=== PATIENT | male | born 1940 | race Asian ===

== ENCOUNTER → 2016-06-27 | Outpatient (CLI) | payer OTHER, BC ==
[~2016-06-27] MED LIST: AMLO-114 PO; ATOR10TA88 PO; CHOL1CAP57 PO; CRG3125 PO; LATA0.5S OPB; LISI-461 PO
--- NOTE | 2016-06-27 09:15 | DIAGNOSTIC IMAGING REPORT ---
CHEST CT WITHOUT CONTRAST CT DOSE: 266.56 mGycm HISTORY: Dyspnea J41.0 [id number] TECHNIQUE: Multiaxial CT images of the chest were performed without contrast. COMPARISON: 01/16/2015 FINDINGS: No major change compared to the prior study. Minimal bronchiectatic change anterior aspect of lingula unaltered. Lungs otherwise appear clear. No significant mediastinal or hilar adenopathy. Axillary regions are unremarkable. Moderate atherosclerotic change thoracic aorta unchanged. Several hepatic hypodensities as well as several small gallstones unchanged. Prior operative resection of the right kidney. IMPRESSION: Minimal chronic bronchiectatic changes anterior lingula. Otherwise negative chest Electronically signed by: Isreal Banerjee M.D. 06/27/2016 9:14 AM Dictated Date/Time: 06/27/2016 9:08 AM
== END | disposition home or self-care (01) ==
LOC: C.CTS 08:39
PROVIDERS: ATTEND Internal Medicine Pulmonary Disease
DX: J41.0 Simple chronic bronchitis (principal)

== ENCOUNTER → 2016-07-08 | Outpatient (CLI) | payer OTHER, BC ==
[2016-07-08 11:31] LABS: BASO % 0.4 %; BASO ABS # 0.03 K/uL (0-0.2); COMPLETE YES; EOS % 5.4 %; HEMATOCRIT 43.7 % (42-52); IG% 0.4 %; LYMPH % 22.9 %; LYMPH ABS # 1.71 K/uL (1.2-3.4); MEAN CELL VOLUME 83.7 fL (80-100); MEAN CORPUSCULAR HEMOGLOBIN 28.4 pg (25-34); MEAN CORPUSCULAR HGB CONC 33.9 g/dl (32-36); MEAN PLATELET VOLUME 9.9 fL (7.4-10.4); MONO % 6.3 %; NEUT % 64.6 %; PLATELET COUNT 310 K/uL (130-400); RED BLOOD COUNT 5.22 M/uL (4.7-6.1); WHITE BLOOD COUNT 7.47 K/uL (4.8-10.8)
[2016-07-08 11:40] LABS: INR 0.9 (0.9-1.1); PARTIAL THROMBOPLASTIN RATIO 1.1; PROTHROMBIN TIME (PATIENT) 9.9 SECONDS (9.0-12.0)
== END | disposition home or self-care (01) ==
LOC: C.LAB 10:27
PROVIDERS: ATTEND Internal Medicine Pulmonary Disease
DX: R05 Cough (principal); J41.0 Simple chronic bronchitis

== ENCOUNTER 2016-07-31 06:51 | Day surgery (SDC) | payer OTHER, BC ==
--- NOTE | 2016-07-30 20:09 | HISTORY & PHYSICAL EXAMINATION ---
DATE OF ADMISSION: 07/31/2016 REASON FOR BRONCHOSCOPY: Chronic cough and bronchiectasis. HISTORY OF PRESENT ILLNESS: This is a 76-year-old male who was referred to our office by his channeler runner, Dr. Raymond in evaluation from bronchoscopy with several year history of chronic productive cough. He is a retired trauma counsellor. He is a lifelong nonsmoker with a history of social secondhand exposure. The patient is originally from the [facility]. He moved to the [facility] in the late 1970s/early 1980s. He is a retired trauma counsellor, but now travels to the [facility] every 3 months. In the fall of 2013, after returning from the [place] from one of these trips, he developed cough productive of thick green sputum with mild postnasal drip and nocturnal wheeze. Evaluation at that time included a QuantiFERON gold, sputum culture, and AFB smear; all of which were unremarkable/negative. He completed a 14-day course of ciprofloxacin with improvement such that his mucus remained productive but became clear in nature. Unfortunately, this mucus production remained intermittent since that time. 2014 sputum production became more persistent/consistent with associated symptoms of nocturnal wheeze. He would produce 10-70 mL of thick white sputum typically in the mornings. He stated that mucus may occasionally be tinged green in color. He denied any associated fevers, chills, or weakness. He was prescribed Symbicort; however, stated that he did use this inconsistently and only for very brief periods. CT chest February 2014: Interstitial thickening of the lung bases with 2 mm right upper lobe nodule. CT chest June 2014: Unchanged 3 mm left upper lobe and right upper lobe nodules. CT chest 06/27/2016: Minimal chronic bronchiectatic changes in the anterior lingula. No change in tiny pulmonary nodules. On June 2014, he was evaluated by Dr. Raymond his channeler runner for these symptoms as well as pulmonary nodules. Pulmonary function test and additional imaging were completed (as below). He was prescribed several inhalers including Symbicort, Combivent, Spiriva, and mometasone and INH as well as montelukast and prednisone. The patient did not demonstrate any consistent use with any of these inhalers and discontinued each in less than 2 weeks on his own volition. The patient was evaluated in the office on June 2016 for persistent symptoms of large amounts of mucus production. In the office, he stated that he continued to produce 10-75 mL of thick white/intermittently green-tinged sputum on most days. He denied any associated hemoptysis. He denied any associated dyspnea or wheeze. He continued to report intermittent symptoms of clear rhinorrhea which he felt increased following a trial of mometasone INH, which subsequently has been discontinued. He did not use Spiriva secondary to worries regarding his BPH. He denies any symptoms of acid reflux, aspiration, fevers, chills, or sinus pain or congestion. He does feel symptoms are worse with air conditioning. He notices this most while visiting the [facility] where he will ride in cars with air conditioning in the setting of air pollution outdoors. He has done some research and is concerned regarding lung cancer producing bronchorrhea. The patient is a lifelong nonsmoker. He reports secondhand exposure socially as a young adult. He was born in the [facility] and moved to the [facility] in the late 1970s/early 1980s. He visits the [facility] on average every 3 months for trips that last generally 2 weeks in duration. Other travel has included to [place] several years ago. He does deny any prior service in the . He denies any exposure to mining/brick/coal dust. He denies any exposure to asbestos/fumes or respiratory irritants. In his home, he uses a heat pump. No dust/mildew/mold. He denies any pets or exposure to livestock, reptiles, rabbits, aviators or bats. His did from tuberculosis. His father from pancreatic cancer at the age of 9090 years old. His mother was diagnosed with breast cancer. PULMONARY FUNCTION TESTING, SEPTEMBER 2014: FVC: 3.06/88%, FEV1: 2.42/79%, FEV1/FVC: 79, FEF 25-75%: 2.48/74%, RV: 2.04/103%, T.22/84%, DLCO: 80%. PAST MEDICAL HISTORY: 1. Allergic rhinitis. 2. Pulmonary nodules. 3. Hypertension. 4. BPH. 5. Right bundle branch block. 6. Dyslipidemia. 7. Esophageal reflux disease. 8. CKD III. 9. 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 10. Tick bite. 11. Nephrolithiasis. 12. Bronchorrhea. PAST SURGICAL HISTORY: History of nephrectomy. FAMILY HISTORY: 1. Malignant neoplasm of the prostate. 2. Breast cancer. 3. Pancreatic cancer. SOCIAL HISTORY: 1. Denies alcohol. 2. Denies drug use. 3. He is a lifelong nonsmoker. CURRENT MEDICATIONS: 1. Amlodipine besylate 10 mg oral tablet: Take 1 tablet once daily. 2. Atorvastatin calcium 10 mg oral tablet: Take 1 tablet daily. 3. Benadryl 25 mg tablet: Take 1 tablet as needed. 4. Lisinopril 10 mg oral tablet: Take 1 tablet everyday. 5. Vitamin D3 1000 units oral tablet: Take 1 tablet daily. 6. Xalatan 0.005% ophthalmic solution: Instill 1 drop in both eyes at bedtime. ALLERGIES: 1. POLLEN. 2. No known drug allergies. PHYSICAL EXAMINATION: VITAL SIGNS: Height 5 feet 1 inch, weight 136 pounds, temperature 97.8 Fahrenheit oral, heart rate 99 beats per minute, respiratory rate 17 respirations per minute, oxygen saturation 99% on room air, blood pressure 142/88 left upper extremity sitting. CONSTITUTIONAL: Well-developed, well-nourished male. No acute distress. HEAD: Positive facial symmetry. EYES: EOMI, PERRLA, no conjunctival injection. Arcus senilis. Corrective lenses. MOUTH: Mallampati grade 2. No erythema, exudate, or postnasal drip is visible. No oral lesions. NECK: Trachea is midline without adenopathy or masses. RESPIRATORY: Nonlabored respirations. No cough on exam. No wheezes, rales, or rhonchi. No clubbing or cyanosis. CARDIOVASCULAR: Regular rate and rhythm. No murmurs, rubs or gallops. +2 radial pulses bilaterally with less than 1 second capillary refill throughout. MUSCULOSKELETAL AND EXTREMITIES: Moving and developed symmetrically with trace left lower extremity edema. No calf tenderness. Negative Homans sign. NEUROLOGIC: Alert and oriented. Data recall intact. Appropriate affect. REVIEW OF SYSTEMS: CONSTITUTIONAL: Denies fevers, weight gain, chills or fatigue. EYES: Negative. ENT: Positive for nasal discharge. Negative for pharyngitis or vocal hoarseness. CARDIOVASCULAR: Positive for lower extremity edema. Denies chest pain or palpitations. RESPIRATORY: Positive for cough, but as noted in the HPI. Denies shortness of breath, wheeze, or dyspnea on exertion. GASTROINTESTINAL: Negative. HEMATOLOGIC AND LYMPHATIC: Negative. ASSESSMENT AND PLAN: A 76-year-old male referred to us by his channeler runner for persistent bronchorrhea in consideration for bronchoscopy. 1. Chronic productive cough present since the fall of 2013 with lingular bronchiectasis on CT: Bronchoscopy with bronchoalveolar lavage. 2. Pulmonary nodules: 3 mm stable. No further follow up. 3. Follow up post testing in consideration of repeat pulmonary function test, allergy evaluation and consideration of nasal spray, etc. with further decisions pending findings on bronchoscopy.
[~2016-07-31] VITALS: Ht 157.5 cm; Wt 62.0 kg
[2016-07-31] VITALS (15 sets, daily range): BP systolic 99–159; BP diastolic 59–92; PULSE 63–92; TEMP 36.8–36.9; O2SAT 93–100; Ht 157.5 cm; Wt 62.0 kg
[2016-07-31] MEDS ORDERED: LIDOCAINE 4% INH SOLN 4 ML BTL ONE (06:52)
[2016-07-31] MEDS ORDERED: LIDOCAINE HCL 2% LOCAL 50ML VIAL INFIL ONE (06:52)
[2016-07-31] MEDS ORDERED: FENTANYL CITRATE INJ 50 MCG/1 ML 2 ML VIAL IV ONE ×2 (06:52→10:45)
[2016-07-31] MEDS ORDERED: MIDAZOLAM HCL 5 MG/ML 1 ML VIAL IV ONE ×2 (06:52→10:45)
--- NOTE | 2016-07-31 09:12 | History & Physical Bridge Note ---
H&P Re-Evaluation Bridge Note: I have examined the patient, reviewed the History & Physical and in the interval since the performance of the History & Physical I have noted the following changes of clinical significance: No changes noted
--- NOTE | 2016-07-31 09:13 | Procedure Note ---
Pre-Mod Sedation Assessment General Date of Moderate Sedation: Jul 31, 2016. Vital Signs: Vital Signs Past 12 Hours Date Time Temp Pulse Resp B/P Pulse Ox O2 Delivery O2 Flow Rate FiO2 07/31/16 08:56 36.9 81 18 127/79 98 Room Air 07/31/16 08:26 36.9 81 18 127/79 98 Room Air Review Cardiovascular: regular rate, rhythm, no edema, no gallop, no JVD, no murmur, normal peripheral pulses Abdomen: normal bowel sounds, non tender, soft, no organomegaly, no pulsatile mass, normal rectal exam, occult blood negative Lungs: chest non-tender, lungs clear, normal breath sounds, no respiratory distress, no accessory muscle use Airway Class: II Pre-Sedation Airway Assessment Oral Cavity: WNL Short Thick Neck: No Hx of Sleep Apnea: No Smoking Status: Never Smoker Mallampati Classification: Class III Procedure Planning Contraindications-for Mod Sed: None Yes Notes The planned sedation has been discussed with the patient and consent obtained. I have identified the patient, determined the appropriateness of sedation and have assessed the patient immediately prior to the procedure. All medicine(s) and interventions are by my order.
[2016-07-31 09:48] LABS: BUN/CREATININE RATIO 12.7 (10-20); CALCIUM 9.5 mg/dl (8.5-10.1); CREATININE 1.5 mg/dl (0.60-1.40); POTASSIUM 3.9 mmol/L (3.5-5.1)
--- NOTE | 2016-07-31 09:58 | Procedure Note ---
Post-Moderate Sedation Plan General Date of Moderate Sedation Jul 31, 2016. Vital Signs: Vital Signs Past 12 Hours Date Time Temp Pulse Resp B/P Pulse Ox O2 Delivery O2 Flow Rate FiO2 07/31/16 09:50 79 26 100/64 97 Nasal Cannula 4.0 07/31/16 09:45 88 26 139/78 97 Mask 6.0 07/31/16 09:40 80 19 138/72 99 Mask 6.0 07/31/16 09:35 88 17 149/83 99 Mask 6.0 07/31/16 09:30 82 19 158/92 100 Mask 6.0 07/31/16 09:25 91 16 137/84 99 Nasal Cannula 6.0 07/31/16 09:15 92 16 159/89 99 Nasal Cannula 6.0 07/31/16 08:56 36.9 81 18 127/79 98 Room Air 07/31/16 08:26 36.9 81 18 127/79 98 Room Air Review - Discharge Plan Post Moderate Sedation Plan: On clinical assessment, the patient appears to have tolerated the conscious sedation without complications. Patient is recovering as anticipated. Patient will continue to be monitored by nursing and may be discharged when conscious sedation discharge criteria are met.
[2016-07-31] MEDS ORDERED: NURSING VERBAL MED ORDER ONE ×2 (10:00→10:30)
--- NOTE | 2016-07-31 10:01 | Bronchoscopy Procedure Note ---
Bronchoscopy Procedure Note Procedure: Bronchoscopy, bronchial alveolar lavage of the lingula, conscious sedation Consent: Obtained to the patient placed in the chart Preprocedural diagnosis: Chronic cough with associated mucous production Postprocedural diagnosis: Chronic with associated mucus production Start time: Zero 933 End time: Zero 942 Analgesia: 2% lidocaine liquid: Nebulized 2% liquid lidocaine: Via bronchoscopy 4% gel lidocaine: Via right naris Sedation: Versed IV: 2 mg Fentanyl IV: 50 g Procedure: The Olympus video bronchoscope was used for this procedure initially passed down through the oropharynx retroflex off the soft palate and then passed down through the right naris. The posterior view showed bilateral erythema edema of the nasal turbinates globally. Right naris: Anatomically within normal limits, notably erythema of the inferior middle turbinate. Posterior naris/posterior oropharynx: Cobblestoning appreciated Glottis: Anatomically within normal limits Vocal cords: Proper abduction and abduction, anatomically within normal limits Subglottis/trachea/Conchita: Anatomically within normal limits Right bronchial tree: Right mainstem: Anatomically within normal limits Right upper lobe: Anatomically within normal limits Bronchus intermedius: Anatomically within normal limits Right middle lobe: Anatomically within normal limits Right lower lobe: Anatomically within normal limits Left bronchial tree: Left mainstem bronchus: Anatomically within normal limits Left upper lobe: Anatomically within normal limits Lingula: Minimal narrowing but otherwise anatomically within normal limits Left lower lobe: Anatomically within normal limits Bronchial lavage: 100 cc lavage performed of the lingula with approximate 40 cc were returned. Follow-up: Patient will be returned to [facility] for follow-up.
--- NOTE | 2016-07-31 10:05 | Discharge Instructions ---
Discharge Instructions Date of Service Jul 31, 2016. Admission Reason for Admission: Bronchorrhea, Cough Discharge Discharge Diagnosis / Problem: chronic mucus production Discharge Goals Goal(s): Diagnostic testing Activity Recommendations Activity Limitations: resume your previous activity . Instructions / Follow-Up Instructions / Follow-Up Follow-up in the [facility] in the next 7-10 days Current Hospital Diet Patient's current hospital diet: Discharge Diet Recommended Diet: Regular Diet Procedures Procedures Performed: Bronchoscopy, bronchial alveolar lavage of the lingula, conscious sedation Pending Studies Studies pending at discharge: yes List of pending studies: Microbiologic and viral analysis of the bronchial lavage of the lingula Medical Emergencies . Who to Call and When: Medical Emergencies: If at any time you feel your situation is an emergency, please call 911 immediately. . Non-Emergent Contact Non-Emergency issues call your: Industrial Maintenance Electrician Call Non-Emergent contact if: temperature is above 101.5 . . "Provider Documentation" section prepared by Louis Golden. VTE Core Measure Inpt VTE Proph given/why not?: Treatment not indicated
[2016-07-31] MEDS ORDERED: SODIUM CHLORIDE 0.9% 1000ML 1,000 ML IV SCH (10:45)
[2016-08-26 19:28] LABS: HERPES SIMPLEX CULT SOURCE RESPIRATORY-BRONCH L; HERPES SIMPLEX VIRUS CULT NOT ISOLATED (NOT ISOLATED)
== END 2016-07-31 12:00 | disposition home or self-care (01) ==
LOC: C.ACU 06:51
PROVIDERS: ATTEND Internal Medicine Critical Care Medicine
DX: J41.0 Simple chronic bronchitis (principal); R05 Cough; R91.1 Solitary pulmonary nodule; J45.909 Unspecified asthma, uncomplicated; N18.3 Chronic kidney disease, stage 3 (moderate); N40.0 Benign prostatic hyperplasia without lower urinary tract symptoms; I10 Essential (primary) hypertension

== ENCOUNTER → 2016-10-28 | Outpatient (CLI) | payer OTHER, BC ==
[~2016-10-28] MED LIST changes: -AMLO-114 PO; +ATOR10TA82 PO; -ATOR10TA88 PO; -CRG3125 PO
== END | disposition home or self-care (01) ==
LOC: C.LAB 11:07
PROVIDERS: ATTEND Urology
DX: R97.20 Elevated prostate specific antigen [PSA] (principal)

== ENCOUNTER → 2017-07-15 | Outpatient (CLI) | payer OTHER, BC ==
[2017-07-15 08:13] LABS: ALBUMIN 4.1 gm/dl (3.4-5.0); ALT/SGPT 48 U/L (12-78); BLOOD UREA NITROGEN 19 mg/dl (7-18); CALCIUM 9.2 mg/dl (8.5-10.1); CARBON DIOXIDE 29 mmol/L (21-32); CREATININE 1.66 mg/dl (0.60-1.40); GLUCOSE 92 mg/dl (70-99); POTASSIUM 3.8 mmol/L (3.5-5.1); SODIUM 138 mmol/L (136-145)
[2017-07-15 08:16] LABS: ALKALINE PHOSPHATASE 69 U/L (45-117); AST/SGOT 29 U/L (15-37); TOTAL PROTEIN 8.3 gm/dl (6.4-8.2)
--- NOTE | 2017-07-15 08:49 | DIAGNOSTIC IMAGING REPORT ---
(CHEST) THORAX WITHOUT CT DOSE: 249.18 mGy.cm CLINICAL HISTORY: 77 years-old Male with R91.1 Solitary pulmonary [id number]. Follow-up study in a patient with pulmonary nodule. History of kidney disease and prior right-sided nephrectomy TECHNIQUE: Multiaxial CT images of the chest were performed without contrast. A dose lowering technique was utilized adhering to the principles of ALARA. COMPARISON: CT chest 06/27/2016, 01/16/2015. FINDINGS: Thyroid is homogeneous without dominant nodule. There is no pathologic adenopathy of the chest by CT size criteria. Calcified right hilar lymph nodes suggest prior granulomatous disease. The heart is normal in size without pericardial effusion. Coronary arterial disease. Moderate atherosclerosis of the thoracic aorta. There is no pneumothorax, pleural effusion or focal airspace consolidation. Punctate calcified granuloma of the left lower lobe. Mild subpleural reticulation is redemonstrated within the inferior segment lingula which is unchanged suggesting areas of chronic scarring. Groundglass and reticular opacities of the posterior basal segment right lower lobe suggest minimal scarring and/or atelectasis. There are no suspicious pulmonary nodules or masses identified. No lobar airspace consolidation or overt pulmonary edema. 2 mm subpleural nodules of the lung apices appear unchanged from the 2015 study suggesting areas of benign scarring. 2 mm nodule of the right upper lobe, image 98 of series 4 also appears unchanged from 2015 exam suggesting benign etiology. 3 mm perifissural lymph node, image 164 series 4. Central airways are patent. Right kidney appears surgically absent. There is an unchanged nonspecific area of soft tissue nodularity measuring 9 x 9 mm within the right upper abdomen which appears mildly decreased in size from 01/16/2015 study. Low attenuating lesions about the liver measuring up to 1.6 cm are also unchanged suggesting hepatic cysts. Soft tissues are unremarkable. Degenerative changes are noted about the shoulders and spine. No suspicious lytic or blastic bony lesions identified. IMPRESSION: 1. No acute intrathoracic abnormality identified. 2. No suspicious pulmonary nodules or pathologic adenopathy identified. 3. Prior granulomatous disease. Electronically signed by: Deshawn Gaytan M.D. 07/15/2017 8:48 AM Dictated Date/Time: 07/15/2017 8:38 AM
[2017-07-15 09:34] LABS: BASO % 0.3 %; BASO ABS # 0.02 K/uL (0-0.2); EOS % 5.9 %; HEMOGLOBIN 16.1 g/dL (14.0-18.0); IG# 0.02 K/uL (0.00-0.02); LYMPH % 28.8 %; LYMPH ABS # 1.94 K/uL (1.2-3.4); MEAN CELL VOLUME 84.2 fL (80-100); MEAN CORPUSCULAR HEMOGLOBIN 28.2 pg (25-34); MEAN CORPUSCULAR HGB CONC 33.5 g/dl (32-36); MEAN PLATELET VOLUME 10.7 fL (7.4-10.4); MONO % 5.2 %; MONO ABS # 0.35 K/uL (0.11-0.59); NEUT % 59.5 %; NEUT ABS # 4.01 K/uL (1.4-6.5); PLATELET COUNT 290 K/uL (130-400); RED CELL DISTRIBUTION WIDTH SD 45.7 fL (36.4-46.3); WHITE BLOOD COUNT 6.74 K/uL (4.8-10.8)
[2017-07-15 09:42] LABS: INR 0.9 (0.9-1.1); PTT PATIENT 26.4 SECONDS (21.0-31.0)
== END | disposition home or self-care (01) ==
LOC: C.CTS 07:23
PROVIDERS: ATTEND Internal Medicine Pulmonary Disease
DX: R91.1 Solitary pulmonary nodule (principal)

== ENCOUNTER → 2017-07-28 | Day surgery (SDC) | payer OTHER, BC ==
[2017-07-28] VITALS (7 sets, daily range): BP systolic 95–144; BP diastolic 57–70; PULSE 58–88; TEMP 36.3–37; O2SAT 95–99; Ht 157.5 cm; Wt 62.1 kg
[~2017-07-28] VITALS: Ht 157.5 cm; Wt 62.1 kg
[~2017-07-28] MED LIST changes: +AMLO-114 PO; +FENTANYL CITRATE INJ 50 MCG/1 ML 2 ML VIAL IV ONE; +LEVALBUTEROL 1.25MG/0.5ML NEB INH ONE; +LIDOCAINE 4% INH SOLN 4 ML BTL ONE; +LIDOCAINE HCL 2% LOCAL 50ML VIAL INSTIL ONE; +MIDAZOLAM HCL 5 MG/ML 1 ML VIAL IV ONE; +OXYMETAZOLINE HCL 0.05% NA SPR 15 ML BTL ONE
--- NOTE | 2017-07-28 08:08 | Pre Sedation Assessment ---
Pre Sedation Assessment General Date of Sedation: Jul 28, 2017. Pre-Sedation Airway Assessment Smoking Status: Never Smoker Mallampati Classification: Class II ASA Classification: Class II Procedure Planning Contraindications for Sedation: None Current Medications Reviewed: Yes Notes The planned sedation has been discussed with the patient. Informed Consent was obtained. I have identified the patient, determined the appropriateness of sedation and have assessed the patient immediately prior to the procedure. All medicine(s) and interventions are by my order.
--- NOTE | 2017-07-28 09:39 | [facility] Operative Report ---
Operative Report Operative Date Jul 28, 2017. Pre-Operative Diagnosis Chronic Mucopurulent Bronchitis Hemoptysis Post-Operative Diagnosis Chronic Mucopurulent Bronchitis Procedure(s) Performed Bronchoscopy w BAL Surgeon Dr Harris Art Specialist Surgeon(s) None Estimated Blood Loss 0 Findings Chronic Inflammatory Mucosal change No active bleeding Specimens BAL L lingula Complication(s) None Disposition Indications Hemoptysis I attest to the content of the Intraoperative Record and any orders documented therein. Any exceptions are noted below.
--- NOTE | 2017-07-28 09:42 | Post Sedation Assessment ---
Post Sedation Assessment General Date of Sedation Jul 28, 2017. Vital Signs: Vital Signs Past 12 Hours Date Time Temp Pulse Resp B/P (MAP) Pulse Ox O2 Delivery O2 Flow Rate FiO2 07/28/17 09:30 88 20 119/64 100 Oxymask 8 07/28/17 09:25 102 20 93/70 100 Oxymask 8 07/28/17 09:20 86 20 129/73 100 Oxymask 8 07/28/17 09:15 91 20 146/81 100 Oxymask 8 07/28/17 08:08 36.9 84 20 144/70 (94) 95 Room Air Post Procedure Recovery Score Activity: (2) Moves 4 extremities * Respiration: (2) Deep breath/cough Circulation: (2) +/-20% PreAnes Value Consciousness: (1) Arouseable (by name) Oxygen Saturation: (1) O2 needed for >90% Post Anesthesia Score: 8 Discharge Sedation Level of Care: Fast Track Phase II Post Sedation Plan On clinical assessment, the patient appears to have tolerated the sedation without complications. Patient is recovering as anticipated. Patient will continue to be monitored by nursing and may be discharged when sedation discharge criteria are met per below protocol. Upon Completions of procedure and additional 15 minutes continue every 5 minute vital signs and the P.A.R. score; then discharge to a Phase I or Fast Track to Phase II per the following guidelines: * Discharge Patient to appropriate Phase II area if PAR is 8 or greater or return to pre- procedure baseline. The post - procedure orders will be as directed. * If PAR score is less than 8 or not return to pre-procedure baseline then patient will follow Phase I monitoring till PAR is reached for Phase II. The Phase I may be done in procedure room or may call to secure a Phase I area. * If naloxone or flumazenil are used for reversal, hold in Phase I for an additional 60 -120 minutes before discharge to Phase II. Please call the Sedation Physician to re-evaluate and complete post-note for discharge to Phase II area. Do NOT discharge from procedure sedation or Phase 1 until post- sedation evaluation note is complete by procedure /sedation MD Sedation Discharge Instructions to be given to the patient at discharge to home.
--- NOTE | 2017-07-28 09:42 | Discharge Instructions ---
Discharge Instructions Date of Service Jul 28, 2017. Admission Reason for Admission: Hemoptysis, Shortness Of Breath, Pulmonary Nodule Discharge Discharge Diagnosis / Problem: Chronic Mucopurulent Bronchitis Discharge Goals Goal(s): Diagnostic testing Activity Recommendations Activity Limitations: resume your previous activity Lifting Limitations: none Exercise/Sports Limitations: none May Resume Sexual Activity: when tolerated Shower/Bathe: no limitations Driving or Machine Use: resume 1 day after discharge none . Instructions / Follow-Up Instructions / Follow-Up ACTIVITY RECOMMENDATIONS: * Rest today, resume normal activity tomorrow. * Do not drive today. SPECIAL CARE INSTRUCTIONS: * Call your physician if you experience any chest or shoulder pain, fever, coughing, spitting up blood (more than 2 teaspoons) or excessive shortness of breath. * Remove dressing from IV site (where needle was placed into the vein) after 2 hours. Apply a warm, moist compress to site if irritation occurs. Call physician if site becomes red or painful to touch. FOLLOW UP VISIT: * Keep any scheduled doctor appointments. Current Hospital Diet Patient's current hospital diet: Regular Discharge Diet Recommended Diet: Regular Diet Fluid Restriction: None Procedures Procedures Performed: Bronchoscopy w BAL Pending Studies Studies pending at discharge: no Medical Emergencies . Who to Call and When: Medical Emergencies: If at any time you feel your situation is an emergency, please call 911 immediately. . Non-Emergent Contact Non-Emergency issues call your: [employer] Salesperson Call Non-Emergent contact if: temperature is above 101 . . "Provider Documentation" section prepared by Jered Harris. .
--- NOTE | 2017-07-28 10:46 | OPERATIVE REPORT ---
DATE OF OPERATION: 07/28/2017 PROCEDURE: Fiberoptic bronchoscopy with bronchoalveolar lavage. INDICATIONS: Hemoptysis/excessive mucus production. ANESTHESIA PREOPERATIVELY: None. ANESTHESIA DURING PROCEDURE: IV Versed 3 mg IV, fentanyl 50 mcg, 20 mL 2% Xylocaine spray above and below the cords, 4% viscous Xylocaine intranasally. PROCEDURE IN DETAIL: Fiberoptic bronchoscope was inserted through the right naris with minimal difficulty and passed to the level of true vocal cords. The cords appeared to approximate normally with phonation, without evidence of lesions or paralysis. The area was anesthetized with 2% Xylocaine spray and the scope was then introduced through the right tracheobronchial tree. The milagros was sharp. The right main stem bronchus was explored initially and no endobronchial lesion was seen. Right upper lobe with the apical-posterior and anterior segments was explored, and although the apical segment looked somewhat narrowed, there were no endobronchial lesions seen. Bronchus intermedius, right middle lobe, the medial and lateral segments and all basilar segments of right lower lobe were found to be free of endobronchial lesions. A moderate amount of mucopurulent secretion was lavaged from right lower lobe until clear. Left tracheobronchial tree was explored and no endobronchial lesion was seen. Left upper lobe with the apical-posterior and anterior segments, lingular subdivision with the superior and inferior segments and all basilar segments of left lower lobe were found to be free of endobronchial lesions. The lingular orifice and the left upper division itself looked somewhat inflammatory and mildly irregular from chronic inflammation. No endobronchial lesion seen. Left lower lobe with all basilar segments was free of endobronchial lesions. A small whitish mucus plugging was seen and lavaged from the subsegmental bronchi of the left upper lobe and lingula and sent for appropriate studies. Fluoroscopy was not utilized. No biopsies were entertained. The procedure was terminated. The patient tolerated the procedure well and was given a nebulizer treatment with Xopenex 1.25 mg and transferred to the medical treatment unit hemodynamically stable, no signs of respiratory compromise. We will await microbiological and cytologic examination of the bronchial washings. I attest to the content of the Intraoperative Record and any orders documented therein. Any exception s are noted below.
[2017-07-30 14:07] LABS: HERPES SIMPLEX VIRUS CULT NOT ISOLATED (NOT ISOLATED)
== END | disposition home or self-care (01) ==
LOC: C.ACU 06:58
PROVIDERS: ATTEND Internal Medicine Pulmonary Disease
DX: J41.1 Mucopurulent chronic bronchitis (principal); R04.2 Hemoptysis; J47.9 Bronchiectasis, uncomplicated; N18.9 Chronic kidney disease, unspecified; I12.9 Hypertensive chronic kidney disease with stage 1 through stage 4 chronic kidney disease, or unspecified chronic kidney disease; J45.909 Unspecified asthma, uncomplicated; Z90.5 Acquired absence of kidney; Z79.899 Other long term (current) drug therapy; R06.02 Shortness of breath

== ENCOUNTER → 2017-09-08 | Outpatient (CLI) | payer OTHER, BC ==
[~2017-09-08] MED LIST changes: -CHOL1CAP57 PO; -FENTANYL CITRATE INJ 50 MCG/1 ML 2 ML VIAL IV ONE; -LEVALBUTEROL 1.25MG/0.5ML NEB INH ONE; -LIDOCAINE 4% INH SOLN 4 ML BTL ONE; -LIDOCAINE HCL 2% LOCAL 50ML VIAL INSTIL ONE; -MIDAZOLAM HCL 5 MG/ML 1 ML VIAL IV ONE; -OXYMETAZOLINE HCL 0.05% NA SPR 15 ML BTL ONE
--- NOTE | 2017-09-08 14:57 | DIAGNOSTIC IMAGING REPORT ---
LOWER EXT NONJOINT WITHOUT CLINICAL HISTORY: 77 years-old Male presenting with L FOREFOOT, CYST/BURSA. TECHNIQUE: Multisequence, multiplanar MR imaging of the left foot was performed without the use of intravenous contrast. IV contrast: None. COMPARISON: None. FINDINGS: Localizer images: Unremarkable. A marker is in place over the dorsum of the foot at the level of the second toe. There is focal soft tissue swelling at the level of the middle phalanx of the second toe subjacent to the extensor tendon. This is T2 hyperintense and T1 hypointense no subjacent osseous erosion. This does not clearly extend from a joint. No fluid in the proximal or distal interphalangeal joints of the second toe. There is no intraosseous component. The lesion measures 11 x 11 x 6 mm. Minimal surrounding subcutaneous edema. Mild fluid noted in the first metatarsophalangeal joint, which demonstrates osteophytosis and joint space loss. No significant subchondral cystic change. Bone marrow signal intensity preserved. No bony edema. Muscles and tendons of the plantar and dorsal compartments normal. IMPRESSION: 1. Extraosseous soft tissue lesion at the site of clinical concern. Differential considerations include a ganglion cyst or neurogenic tumor. The appearance is not suggestive of injury. A contrast-enhanced MR is recommended for follow-up to exclude a soft tissue tumor. Ultrasound may be helpful. Electronically signed by: Zeyad Sahu M.D. 09/08/2017 2:55 PM Dictated Date/Time: 09/08/2017 2:40 PM
--- NOTE | 2017-09-10 14:14 | CODING QUERY NO DIAGNOSIS ---
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 Please assist us with providing a diagnosis/symptom for the test(s) below: A diagnosis/symptom was not documented on your Order. A valid diagnosis/symptom is required to bill all insurances. Please remember that we are unable to code a diagnosis of rule out, probable, possible, questionable, or suspected. Tests that require a diagnosis: Dos 09/10/17 Lower Extremity MRI DX code: Provider Signature: Date: Thank you Teresa Bryson [employer] Once completed, please kindly fax back to [phone] For questions please call [phone]
== END | disposition home or self-care (01) ==
LOC: C.MRI 13:21
PROVIDERS: ATTEND Podiatrist Primary Podiatric Medicine
DX: M67.472 Ganglion, left ankle and foot (principal)

== ENCOUNTER → 2017-09-23 | Outpatient (CLI) | payer OTHER, BC | END | disposition home or self-care (01) | LOC: C.LAB 07:46 | PROVIDERS: ATTEND Urology | DX: R97.20 Elevated prostate specific antigen [PSA] (principal) ==